=== PATIENT | female | born 1945 | race Caucasian/White ===

== ENCOUNTER 2022-02-28 22:30 | Emergency (ER) | payer SELFPAY ==
[~2022-02-28] VITALS: Ht 162.6 cm; Wt 57.0 kg
[2022-02-28 22:58] VITALS: BP 138/71
[2022-03-01] MEDS ORDERED: DICL50TA4 PO (02:45)
[2022-03-01] MEDS ORDERED: BACL10TA PO (02:45)
== END 2022-03-01 02:48 | disposition home or self-care (01) ==
LOC: ER 22:38
DX: S80.01XA Contusion of right knee, initial encounter (principal); S80.02XA Contusion of left knee, initial encounter; S60.212A Contusion of left wrist, initial encounter; S60.211A Contusion of right wrist, initial encounter; E78.5 Hyperlipidemia, unspecified; W01.0XXA Fall on same level from slipping, tripping and stumbling without subsequent striking against object, initial encounter; Y93.89 Activity, other specified; Y92.89 Other specified places as the place of occurrence of the external cause; Y99.8 Other external cause status
CPT/HCPCS: 73100; 73560

== ENCOUNTER 2022-06-15 13:17 | Inpatient (IN) | payer MEDICARE, OTHER ==
[~2022-06-15] VITALS: Ht 162.6 cm; Wt 64.0 kg
[~2022-06-15 13:17] MED LIST: BACL10TA PO; DICL50TA4 PO
[2022-06-15] MEDS ORDERED: SODIUM CHLORIDE 0.9% 1,000 ML IV ONE (13:30)
[2022-06-15 14:02] LABS: Red Cell Distribution Width 15.1 % (11.8-14.3); White Blood Cell 7.5 10^3/uL (4.4-10.8)
[2022-06-15 14:06] LABS: Hematocrit 41.5 % (36.0-46.0); Hemoglobin 14.4 g/dL (12.2-16.2); Mean Corpuscular Hemoglobin 32.2 pg (28.0-32.0); Mean Corpuscular Hgb Conc. 34.8 g/dL (32.0-36.0); Mean Corpuscular Volume 92.7 fL (80.0-100.0); Red Blood Cells 4.48 10^6/uL (4.0-5.20)
[2022-06-15] MEDS ORDERED: cefTRIAXone 1GM/50ML D5W 50 ML IV ONE (14:15)
[2022-06-15 14:17] LABS: INR 1.03 (0.9-1.15); Partial Thromboplastin Time 24.5 sec (24.6-33.4)
[2022-06-15 14:20] LABS: Albumin 3.1 g/dL (3.4-5.0); Calcium 8.8 mg/dL (8.5-10.1); Potassium 4.1 mmol/L (3.5-5.1)
[2022-06-15 14:23] LABS: BUN/Creatinine Ratio 17.2; Bilirubin, Total 0.6 mg/dL (0.2-1.0); Total Protein 6.2 g/dL (6.4-8.2)
[2022-06-15 15:08] LABS: Basophils % (manual) 0 (0.0-2.0); Blast Cells 0; Myelocytes % 0; Promyelocytes % 0; Reactive Lymphocytes 0
[2022-06-15 15:11] LABS: Band Neutrophils % (manual) 39; Eosinophils % (manual) 1 (0-7); Lymphocytes % (manual) 14 (10.0-50.0); Metamyelocytes % 2; Monocytes % (manual) 9 (0-12)
[2022-06-15 15:12] LABS: Lactic Acid w/Reflex 2.1 mmol/L (0.4-2.0)
[2022-06-15] MEDS ORDERED: DOCUSATE SOD 100 MG CAP PO PRN (20:30)
[2022-06-15] MEDS ORDERED: HYDROcodone-ACET 5/325MG TAB PO PRN (20:30)
[2022-06-15] MEDS ORDERED: LORazepam 0.5 MG TAB PO PRN (20:30)
[2022-06-15] MEDS ORDERED: MAALOX PLUS or MAALOX 30 ML PO PRN (20:30)
[2022-06-15] MEDS ORDERED: ONDANSETRON HCL 4 MG/2 ML VIAL IV PRN (20:30)
[2022-06-15] MEDS: cefTRIAXone 1GM/50ML D5W 50 ML IV SCH (20:50)
[2022-06-15] MEDS: SODIUM CHLORIDE 0.9% 1,000 ML IV SCH (21:13)
[2022-06-16 07:26] LABS: Basophils # (auto) 0 10 ^3/uL (0-0.2); Basophils % (auto) 0.5 % (0.0-2.0); Eosinophils # (auto) 0 10 ^3/uL (0-0.8); Eosinophils % (auto) 0.2 % (0.0-7.0); Hematocrit 38.3 % (36.0-46.0); Lymphocytes # (auto) 1.2 10 ^3/uL (0.4-5.4); Lymphocytes % (auto) 17.3 % (10.0-50.0); Mean Corpuscular Hemoglobin 31.1 pg (28.0-32.0); Mean Corpuscular Hgb Conc. 33.9 g/dL (32.0-36.0); Mean Corpuscular Volume 91.7 fL (80.0-100.0); Monocytes # (auto) 0.5 10 ^3/uL (0-1.3); Monocytes % (auto) 6.9 % (0.0-12.0); Neutrophils # (auto) 5.1 10 ^3/uL (1.6-8.6); Neutrophils % (auto) 75.1 % (37.0-80.0); Nucleated Red Blood Cells % 0.1 %; Red Blood Cells 4.18 10^6/uL (4.0-5.20); Red Cell Distribution Width 14.9 % (11.8-14.3); White Blood Cell 6.9 10^3/uL (4.4-10.8)
[2022-06-16 07:45] LABS: Calcium 8.4 mg/dL (8.5-10.1); Potassium 3.5 mmol/L (3.5-5.1)
[2022-06-16] MEDS ORDERED: BUSP15TA60 PO (09:48)
[2022-06-16] MEDS ORDERED: BUSP10TA31 PO (09:49)
[2022-06-16] MEDS ORDERED: FLUO-259 PO (09:53)
[2022-06-16] MEDS ORDERED: OLAN1TAB19 PO (09:53)
[2022-06-16] MEDS ORDERED: DIVA1TAB59 PO (09:53)
[2022-06-16] MEDS ORDERED: TRAZ50TA2 PO (09:53)
[2022-06-16 10:24] LABS: Urine Bacteria FEW /hpf (None Seen); Urine Blood 2+ /uL (Negative); Urine Mucus FEW (None Seen); Urine Specific Gravity 1.026 (1.001-1.035); Urine WBC 25 /hpf (0 - 5)
[2022-06-16] MEDS: SODIUM CHLORIDE 0.9% 1,000 ML IV SCH (13:35)
[2022-06-16 21:49] VITALS: BP 132/72
[2022-06-16] MEDS ORDERED: L-METAB PO (22:03)
[2022-06-16] MEDS ORDERED: PRAV20TA3 PO (22:03)
[2022-06-17] MEDS: SODIUM CHLORIDE 0.9% 1,000 ML IV SCH ×2 (05:33→22:30)
[2022-06-17 06:23] LABS: Basophils # (auto) 0 10 ^3/uL (0-0.2); Basophils % (auto) 0.8 % (0.0-2.0); Eosinophils # (auto) 0.1 10 ^3/uL (0-0.8); Eosinophils % (auto) 1.2 % (0.0-7.0); Hematocrit 36.9 % (36.0-46.0); Hemoglobin 12.8 g/dL (12.2-16.2); Lymphocytes % (auto) 19.2 % (10.0-50.0); Mean Corpuscular Hemoglobin 31.8 pg (28.0-32.0); Mean Corpuscular Hgb Conc. 34.6 g/dL (32.0-36.0); Monocytes # (auto) 0.3 10 ^3/uL (0-1.3); Monocytes % (auto) 6.7 % (0.0-12.0); Neutrophils # (auto) 3.6 10 ^3/uL (1.6-8.6); Neutrophils % (auto) 72.1 % (37.0-80.0); Nucleated Red Blood Cells % 0.4 %; Red Blood Cells 4.01 10^6/uL (4.0-5.20)
[2022-06-17 06:41] LABS: Potassium 3.6 mmol/L (3.5-5.1)
[2022-06-17 06:49] LABS: Albumin 2.5 g/dL (3.4-5.0); BUN/Creatinine Ratio 39.7; Bilirubin, Total 0.5 mg/dL (0.2-1.0); Calcium 8.9 mg/dL (8.5-10.1); Total Protein 5.3 g/dL (6.4-8.2)
[2022-06-17 09:04] VITALS: BP 114/64
[2022-06-17] MEDS: cefTRIAXone 1GM/50ML D5W 50 ML IV SCH (12:53)
[2022-06-17 13:00] VITALS: BP 109/65
[2022-06-17 17:00] VITALS: BP 106/57
[2022-06-17 20:15] VITALS: BP 125/87
[2022-06-17 22:00] VITALS: BP 125/87
[2022-06-18 05:00] VITALS: BP 123/52
[2022-06-18 08:32] LABS: Basophils # (auto) 0 10 ^3/uL (0-0.2); Basophils % (auto) 0.9 % (0.0-2.0); Eosinophils # (auto) 0 10 ^3/uL (0-0.8); Eosinophils % (auto) 0.4 % (0.0-7.0); Hematocrit 36.8 % (36.0-46.0); Hemoglobin 12.7 g/dL (12.2-16.2); Lymphocytes # (auto) 0.3 10 ^3/uL (0.4-5.4); Lymphocytes % (auto) 9.4 % (10.0-50.0); Mean Corpuscular Hemoglobin 31.8 pg (28.0-32.0); Mean Corpuscular Hgb Conc. 34.4 g/dL (32.0-36.0); Mean Corpuscular Volume 92.2 fL (80.0-100.0); Monocytes # (auto) 0.3 10 ^3/uL (0-1.3); Monocytes % (auto) 8.9 % (0.0-12.0); Neutrophils # (auto) 2.5 10 ^3/uL (1.6-8.6); Neutrophils % (auto) 80.4 % (37.0-80.0); Nucleated Red Blood Cells % 0.2 %; Red Blood Cells 3.99 10^6/uL (4.0-5.20); Red Cell Distribution Width 15.3 % (11.8-14.3); White Blood Cell 3.1 10^3/uL (4.4-10.8)
[2022-06-18 08:48] LABS: Calcium 8.3 mg/dL (8.5-10.1); Potassium 3.4 mmol/L (3.5-5.1)
[2022-06-18 08:51] LABS: Bilirubin, Total 0.6 mg/dL (0.2-1.0); Total Protein 6.3 g/dL (6.4-8.2)
[2022-06-18] MEDS: cefTRIAXone 1GM/50ML D5W 50 ML IV SCH (10:11)
[2022-06-18 14:15] LABS: BUN/Creatinine Ratio 25.3
[2022-06-18 20:00] VITALS: BP 124/62
[2022-06-18] MEDS: ACETAMINOPHEN 325 MG TAB PO PRN (20:52)
[2022-06-18 22:00] VITALS: BP 124/62
[2022-06-19 06:18] LABS: Potassium 3.9 mmol/L (3.5-5.1)
[2022-06-19 06:30] LABS: Albumin 2.7 g/dL (3.4-5.0); BUN/Creatinine Ratio 22.2; Bilirubin, Total 0.4 mg/dL (0.2-1.0); Calcium 8.4 mg/dL (8.5-10.1); Total Protein 5.7 g/dL (6.4-8.2)
[2022-06-19 06:33] LABS: Hematocrit 35.7 % (36.0-46.0); Hemoglobin 12.5 g/dL (12.2-16.2); Mean Corpuscular Hemoglobin 32.2 pg (28.0-32.0); Mean Corpuscular Hgb Conc. 34.9 g/dL (32.0-36.0); Mean Corpuscular Volume 92.1 fL (80.0-100.0); Red Blood Cells 3.88 10^6/uL (4.0-5.20)
[2022-06-19 06:44] LABS: Basophils % (manual) 0 (0.0-2.0); Eosinophils % (manual) 0 (0-7); Myelocytes % 0; Promyelocytes % 0; Reactive Lymphocytes 0
[2022-06-19 08:52] LABS: Band Neutrophils % (manual) 6; Blast Cells 2; Lymphocytes % (manual) 23 (10.0-50.0); Metamyelocytes % 2; Monocytes % (manual) 12 (0-12)
[2022-06-19 09:54] VITALS: BP 102/56
[2022-06-19] MEDS: cefTRIAXone 1GM/50ML D5W 50 ML IV SCH (11:00)
[2022-06-19] MEDS ORDERED: REMDESIVIR PER PHARMACY 0 ML IV SCH (16:15)
[2022-06-19] MEDS ORDERED: REMDESIVIR 200 MG in NS 210ml LOADING DOSE ADULT IV ONE (17:30)
[2022-06-19 18:01] VITALS: BP 137/82
[2022-06-19] MEDS: DexAMETHasone 4 MG TAB PO SCH (21:22)
[2022-06-19] MEDS: ACETAMINOPHEN 325 MG TAB PO PRN (21:24)
[2022-06-19 21:56] VITALS: BP 112/68
[2022-06-20 05:00] VITALS: BP 100/66
[2022-06-20 05:36] LABS: Albumin 2.3 g/dL (3.4-5.0); Anion Gap 7 (5-15); Blood Urea Nitrogen 13 mg/dL (7-18); Calcium 8.1 mg/dL (8.5-10.1); Carbon Dioxide 26 mmol/L (21-32); Chloride 105 mmol/L (98-107); Glucose 130 mg/dL (74-106); Potassium 3.7 mmol/L (3.5-5.1); Sodium 138 mmol/L (136-145)
[2022-06-20 05:38] LABS: Alanine Aminotransferase 20 U/L (13-56); BUN/Creatinine Ratio 18.6; GFR African American 105 mL/min; GFR Non-African American 87 mL/min
[2022-06-20 05:47] LABS: Alkaline Phosphatase 51 U/L (45-117); Aspartate Aminotransferase 37 U/L (15-37); Bilirubin, Total 0.3 mg/dL (0.2-1.0); Total Protein 5.9 g/dL (6.4-8.2)
[2022-06-20 06:44] LABS: Urine Bacteria NONE SEEN /hpf (None Seen); Urine Blood Negative /uL (Negative); Urine Specific Gravity 1.008 (1.001-1.035); Urine WBC 2 /hpf (0 - 5)
[2022-06-20 08:19] LABS: Basophils # (auto) 0 10 ^3/uL (0-0.2); Basophils % (auto) 0.6 % (0.0-2.0); Eosinophils # (auto) 0 10 ^3/uL (0-0.8); Hematocrit 39.2 % (36.0-46.0); Hemoglobin 13.2 g/dL (12.2-16.2); Lymphocytes # (auto) 0.6 10 ^3/uL (0.4-5.4); Lymphocytes % (auto) 14.9 % (10.0-50.0); Mean Corpuscular Hgb Conc. 33.7 g/dL (32.0-36.0); Monocytes # (auto) 0.4 10 ^3/uL (0-1.3); Monocytes % (auto) 11.5 % (0.0-12.0); Neutrophils # (auto) 2.8 10 ^3/uL (1.6-8.6); Red Blood Cells 4.26 10^6/uL (4.0-5.20); Red Cell Distribution Width 14.9 % (11.8-14.3); White Blood Cell 3.8 10^3/uL (4.4-10.8)
[2022-06-20 08:44] VITALS: BP 92/68
[2022-06-20] MEDS: DexAMETHasone 4 MG TAB PO SCH (10:07)
[2022-06-20 13:00] VITALS: BP 99/52
[2022-06-20] MEDS: REMDESIVIR 100mg 100 MG in SODIUM CHL 0.9% 230 ML IV SCH (16:15)
[2022-06-20 17:00] VITALS: BP 98/48
[2022-06-20 22:00] VITALS: BP 111/60
[2022-06-21] VITALS (7 sets, daily range): BP systolic 76–112; BP diastolic 46–60
[2022-06-21 07:24] LABS: Basophils # (auto) 0 10 ^3/uL (0-0.2); Basophils % (auto) 0.3 % (0.0-2.0); Eosinophils # (auto) 0 10 ^3/uL (0-0.8); Hematocrit 42.1 % (36.0-46.0); Hemoglobin 14.6 g/dL (12.2-16.2); Lymphocytes # (auto) 1.8 10 ^3/uL (0.4-5.4); Lymphocytes % (auto) 26.4 % (10.0-50.0); Mean Corpuscular Hemoglobin 31.8 pg (28.0-32.0); Mean Corpuscular Hgb Conc. 34.8 g/dL (32.0-36.0); Mean Corpuscular Volume 91.4 fL (80.0-100.0); Monocytes # (auto) 0.5 10 ^3/uL (0-1.3); Monocytes % (auto) 7.9 % (0.0-12.0); Neutrophils # (auto) 4.5 10 ^3/uL (1.6-8.6); Neutrophils % (auto) 65.4 % (37.0-80.0); Nucleated Red Blood Cells % 0.4 %; Red Blood Cells 4.61 10^6/uL (4.0-5.20); Red Cell Distribution Width 15.1 % (11.8-14.3)
[2022-06-21 07:44] LABS: Potassium 3.6 mmol/L (3.5-5.1)
[2022-06-21 07:53] LABS: Albumin 2.8 g/dL (3.4-5.0); Bilirubin, Total 0.4 mg/dL (0.2-1.0); Calcium 8.6 mg/dL (8.5-10.1); Total Protein 5.7 g/dL (6.4-8.2)
[2022-06-21] MEDS: DexAMETHasone 4 MG TAB PO SCH (09:29)
[2022-06-21] MEDS ORDERED: SODIUM CHLORIDE 0.9% 1,000 ML IV ONE (13:00)
[2022-06-21] MEDS: REMDESIVIR 100mg 100 MG in SODIUM CHL 0.9% 230 ML IV SCH (14:58)
[2022-06-22 05:00] VITALS: BP 101/55
[2022-06-22 07:24] LABS: Basophils # (auto) 0 10 ^3/uL (0-0.2); Basophils % (auto) 0.2 % (0.0-2.0); Eosinophils # (auto) 0 10 ^3/uL (0-0.8); Eosinophils % (auto) 0.1 % (0.0-7.0); Hematocrit 38.9 % (36.0-46.0); Lymphocytes # (auto) 1.5 10 ^3/uL (0.4-5.4); Lymphocytes % (auto) 24.7 % (10.0-50.0); Mean Corpuscular Hemoglobin 30.6 pg (28.0-32.0); Mean Corpuscular Hgb Conc. 33.4 g/dL (32.0-36.0); Mean Corpuscular Volume 91.6 fL (80.0-100.0); Monocytes # (auto) 0.4 10 ^3/uL (0-1.3); Monocytes % (auto) 6.7 % (0.0-12.0); Neutrophils % (auto) 68.3 % (37.0-80.0); Nucleated Red Blood Cells % 0.3 %; Red Blood Cells 4.25 10^6/uL (4.0-5.20); White Blood Cell 5.9 10^3/uL (4.4-10.8)
[2022-06-22 08:14] LABS: Albumin 2.5 g/dL (3.4-5.0); BUN/Creatinine Ratio 48.1; Calcium 8.1 mg/dL (8.5-10.1); Potassium 3.5 mmol/L (3.5-5.1)
[2022-06-22 08:18] LABS: Bilirubin, Total 0.4 mg/dL (0.2-1.0); Total Protein 5.1 g/dL (6.4-8.2)
[2022-06-22 08:53] VITALS: BP 112/53
[2022-06-22] MEDS: DexAMETHasone 4 MG TAB PO SCH (09:55)
[2022-06-22 12:31] VITALS: BP 98/50
[2022-06-22] MEDS: REMDESIVIR 100mg 100 MG in SODIUM CHL 0.9% 230 ML IV SCH (15:49)
[2022-06-22 16:38] VITALS: BP 99/58
[2022-06-22 21:56] VITALS: BP 106/56
[2022-06-23 05:00] VITALS: BP 122/70
[2022-06-23 07:21] LABS: Basophils # (auto) 0 10 ^3/uL (0-0.2); Basophils % (auto) 0.3 % (0.0-2.0); Eosinophils # (auto) 0 10 ^3/uL (0-0.8); Eosinophils % (auto) 0.1 % (0.0-7.0); Hematocrit 36.6 % (36.0-46.0); Hemoglobin 12.6 g/dL (12.2-16.2); Lymphocytes # (auto) 1.3 10 ^3/uL (0.4-5.4); Lymphocytes % (auto) 29.9 % (10.0-50.0); Mean Corpuscular Hemoglobin 31.6 pg (28.0-32.0); Mean Corpuscular Hgb Conc. 34.5 g/dL (32.0-36.0); Mean Corpuscular Volume 91.5 fL (80.0-100.0); Monocytes # (auto) 0.4 10 ^3/uL (0-1.3); Monocytes % (auto) 8.1 % (0.0-12.0); Neutrophils # (auto) 2.7 10 ^3/uL (1.6-8.6); Neutrophils % (auto) 61.6 % (37.0-80.0); Nucleated Red Blood Cells % 0.3 %; White Blood Cell 4.4 10^3/uL (4.4-10.8)
[2022-06-23 07:40] LABS: Potassium 3.6 mmol/L (3.5-5.1)
[2022-06-23 07:50] LABS: Albumin 2.6 g/dL (3.4-5.0); BUN/Creatinine Ratio 53.1; Bilirubin, Total 0.5 mg/dL (0.2-1.0); Total Protein 5.1 g/dL (6.4-8.2)
[2022-06-23 08:32] VITALS: BP 105/53
[2022-06-23] MEDS: DexAMETHasone 4 MG TAB PO SCH (11:06)
[2022-06-23 13:00] VITALS: BP 109/65
[2022-06-23] MEDS: REMDESIVIR 100mg 100 MG in SODIUM CHL 0.9% 230 ML IV SCH (15:17)
[2022-06-23 17:00] VITALS: BP 112/54
[2022-06-24 08:15] VITALS: BP 113/63
[2022-06-24] MEDS: DexAMETHasone 4 MG TAB PO SCH (11:51)
[2022-06-24 12:00] VITALS: BP 103/59
[2022-06-24] MEDS: REMDESIVIR 100mg 100 MG in SODIUM CHL 0.9% 230 ML IV SCH (16:44)
[2022-06-24 18:20] VITALS: BP 104/57
[2022-06-24 20:00] VITALS: BP 110/57
[2022-06-25 06:31] LABS: Basophils # (auto) 0 10 ^3/uL (0-0.2); Basophils % (auto) 0.3 % (0.0-2.0); Eosinophils # (auto) 0 10 ^3/uL (0-0.8); Eosinophils % (auto) 0.1 % (0.0-7.0); Hematocrit 35.2 % (36.0-46.0); Hemoglobin 12.1 g/dL (12.2-16.2); Lymphocytes % (auto) 19.9 % (10.0-50.0); Mean Corpuscular Hemoglobin 31.4 pg (28.0-32.0); Mean Corpuscular Hgb Conc. 34.4 g/dL (32.0-36.0); Mean Corpuscular Volume 91.3 fL (80.0-100.0); Monocytes # (auto) 0.3 10 ^3/uL (0-1.3); Neutrophils # (auto) 3.8 10 ^3/uL (1.6-8.6); Neutrophils % (auto) 74.7 % (37.0-80.0); Nucleated Red Blood Cells % 0.1 %; Red Blood Cells 3.85 10^6/uL (4.0-5.20); Red Cell Distribution Width 15.1 % (11.8-14.3); White Blood Cell 5.1 10^3/uL (4.4-10.8)
[2022-06-25 06:48] LABS: Albumin 2.3 g/dL (3.4-5.0); BUN/Creatinine Ratio 37.5; Calcium 8.4 mg/dL (8.5-10.1); Potassium 4.1 mmol/L (3.5-5.1)
[2022-06-25 06:51] LABS: Bilirubin, Total 0.4 mg/dL (0.2-1.0); Total Protein 4.8 g/dL (6.4-8.2)
[2022-06-25 09:00] VITALS: BP 127/94
[2022-06-25] MEDS: DexAMETHasone 4 MG TAB PO SCH (10:47)
[2022-06-25 13:00] VITALS: BP 99/50
[2022-06-25 17:00] VITALS: BP 106/49
[2022-06-25 20:00] VITALS: BP 110/57
[2022-06-26 07:13] LABS: Basophils # (auto) 0 10 ^3/uL (0-0.2); Basophils % (auto) 0.5 % (0.0-2.0); Eosinophils # (auto) 0 10 ^3/uL (0-0.8); Eosinophils % (auto) 0.2 % (0.0-7.0); Hematocrit 35.2 % (36.0-46.0); Hemoglobin 12.2 g/dL (12.2-16.2); Lymphocytes # (auto) 1.3 10 ^3/uL (0.4-5.4); Lymphocytes % (auto) 23.3 % (10.0-50.0); Mean Corpuscular Hemoglobin 31.6 pg (28.0-32.0); Mean Corpuscular Hgb Conc. 34.8 g/dL (32.0-36.0); Mean Corpuscular Volume 90.7 fL (80.0-100.0); Monocytes # (auto) 0.3 10 ^3/uL (0-1.3); Monocytes % (auto) 5.1 % (0.0-12.0); Neutrophils % (auto) 70.9 % (37.0-80.0); Nucleated Red Blood Cells % 0.1 %; Red Blood Cells 3.88 10^6/uL (4.0-5.20); Red Cell Distribution Width 15.4 % (11.8-14.3); White Blood Cell 5.7 10^3/uL (4.4-10.8)
[2022-06-26 07:29] LABS: Albumin 2.4 g/dL (3.4-5.0); Calcium 8.1 mg/dL (8.5-10.1); Potassium 3.8 mmol/L (3.5-5.1)
[2022-06-26 07:33] LABS: BUN/Creatinine Ratio 43.3; Bilirubin, Total 0.6 mg/dL (0.2-1.0); Total Protein 4.9 g/dL (6.4-8.2)
[2022-06-26 09:00] VITALS: BP 102/53
[2022-06-26] MEDS: DexAMETHasone 4 MG TAB PO SCH (11:53)
[2022-06-26 13:00] VITALS: BP 112/66
[2022-06-26 17:00] VITALS: BP 97/58
[2022-06-26 20:00] VITALS: BP 97/49
[2022-06-26 22:00] VITALS: BP 97/49
[2022-06-27 05:00] VITALS: BP 120/66
[2022-06-27 06:50] LABS: Albumin 2.5 g/dL (3.4-5.0); Calcium 7.9 mg/dL (8.5-10.1)
[2022-06-27 06:54] LABS: BUN/Creatinine Ratio 33.8; Bilirubin, Total 0.6 mg/dL (0.2-1.0); Total Protein 5.1 g/dL (6.4-8.2)
[2022-06-27 06:57] LABS: Basophils # (auto) 0 10 ^3/uL (0-0.2); Basophils % (auto) 0.6 % (0.0-2.0); Eosinophils # (auto) 0.2 10 ^3/uL (0-0.8); Eosinophils % (auto) 3.4 % (0.0-7.0); Hematocrit 36.1 % (36.0-46.0); Hemoglobin 12.7 g/dL (12.2-16.2); Lymphocytes # (auto) 1.5 10 ^3/uL (0.4-5.4); Lymphocytes % (auto) 34.8 % (10.0-50.0); Mean Corpuscular Hemoglobin 32.1 pg (28.0-32.0); Mean Corpuscular Hgb Conc. 35.2 g/dL (32.0-36.0); Mean Corpuscular Volume 91.4 fL (80.0-100.0); Monocytes # (auto) 0.2 10 ^3/uL (0-1.3); Monocytes % (auto) 5.6 % (0.0-12.0); Neutrophils # (auto) 2.5 10 ^3/uL (1.6-8.6); Neutrophils % (auto) 55.6 % (37.0-80.0); Nucleated Red Blood Cells % 0.5 %; Red Blood Cells 3.95 10^6/uL (4.0-5.20); White Blood Cell 4.5 10^3/uL (4.4-10.8)
[2022-06-27 07:43] VITALS: BP 97/49
[2022-06-27] MEDS: DexAMETHasone 4 MG TAB PO SCH (08:18)
[2022-06-27 09:00] VITALS: BP 102/52
[2022-06-27 14:22] VITALS: BP 101/50
== END 2022-06-27 17:51 | disposition home health service (06) | DRG 177 ==
LOC: ER 13:17 → EDBD 13:17 → OVERFLOW 20:22 → WEST WING 06-16 21:00
PROVIDERS: ADMIT Hospitalist; ATTEND Student in an Organized Health Care Education/Training Program
PROC: XW033E5 Introduction of Remdesivir Anti-infective into Peripheral Vein, Percutaneous Approach, New Technology Group 5 (ICD-10-PCS; principal; 2022-06-19)
DX: U07.1 COVID-19 (principal); E43 Unspecified severe protein-calorie malnutrition; G93.41 Metabolic encephalopathy; J96.01 Acute respiratory failure with hypoxia; J12.82 Pneumonia due to coronavirus disease 2019; N39.0 Urinary tract infection, site not specified; E87.20 Acidosis, unspecified; F03.90 Unspecified dementia, unspecified severity, without behavioral disturbance, psychotic disturbance, mood disturbance, and anxiety; E78.5 Hyperlipidemia, unspecified; R79.89 Other specified abnormal findings of blood chemistry; D69.6 Thrombocytopenia, unspecified; D72.819 Decreased white blood cell count, unspecified; Z23 Encounter for immunization; Z87.01 Personal history of pneumonia (recurrent); Z88.1 Allergy status to other antibiotic agents
CPT/HCPCS: 36415; 36600; 70450; 71045; 71046; 80048; 80053; 81001; 82805; 83605; 83880; 84484; 85007; 85025; 85027; 85610; 85730; 87040; 87086; 87426; 87804; 96365; 97110; 97116; 97163; 97530; G0378; J0696; J7042

== ENCOUNTER 2024-05-17 07:12 | Emergency (ER) | payer MEDICARE, OTHER ==
[~2024-05-17] VITALS: Ht 162.6 cm; Wt 45.5 kg
[~2024-05-17 07:12] MED LIST changes: -BACL10TA PO; +BUSP10TA31 PO; +DIVA1TAB59 PO; +FLUO-259 PO; +L-METAB PO; +OLAN1TAB19 PO; +PRAV20TA3 PO; +TRAZ-227 PO
--- NOTE | 2024-05-17 07:25 | ED.PDOC ---
GI ASSESSMENT HPI Comments 78Y F with PMHx HLD and dementia presents to ED via EMS for chief complaint nausea/vomiting x4hrs. Pt presents to ED very shaky and states she is scared of what is happening to her and says she does not usually shake. Pt denies all pain. Per pt, she had a fall recently but EMS says that the denies any recent falls. EMS vitals: systolic BP 110s, HR 86, O2 86% on RA and then low 90s with 2L/min of O2 via nc, and BS 135. EKG showed NSR with EMS. Time Seen by MD: 07:15 Primary Care Provider: unknown Reviewed Notes: Medications, Allergies Allergies: Coded Allergies: Erythromycin (Verified Allergy, Intermediate, 06/15/22) Penicillin V (Verified Allergy, Unknown, 06/15/22) Uncoded Allergies: PENICLLIN (Allergy, Intermediate, 06/15/22) Home Meds Active Scripts Diclofenac Sodium (Diclofenac Sodium Ec) 50 Mg Tab, 1 TAB PO BID PRN, #20 TAB 1 Refill Prov:SUPRIYA JESUS 03/01/22 Reported Medications Pravastatin Sodium (PRAVACHOL TABLET) 20 Mg Tb, 1 TAB PO DAILY, #30 TAB 5 Refills 06/16/22 L-Methylfolate W/ Cyanocobalam (Cerefolin) Tab, 314 MG PO DAILY, TAB 06/16/22 Trazodone Hcl (Trazodone Hcl) 50 Mg Tab, 1 TAB PO HS 06/16/22 Fluoxetine HCl (Fluoxetine Hydrochloride) 20 Mg Cap, 1 CAP PO DAILY 06/16/22 Olanzapine (OLANZAPINE) 10 Mg Tab, 1 TAB PO DAILY 06/16/22 Divalproex Sodium (Divalproex Sodium Dr) 500 Mg Tab, 1 TAB PO BID 06/16/22 Buspirone HCl (Buspirone HCl) 10 Mg Tab, 1 TAB PO DAILY 06/16/22 Information Source: Patient, Emergency Med Personnel Mode of Arrival: EMS Brought in by: EMS Timing: Hours Duration: Since onset Prehospital treatment: 12 Lead EKG, Oxygen Quality: None Vomitus: Watery Stool: Normal Severity: Mild Recent: None Recent Hx of: None Pain Location: None Modifying Factors: Nothing Associated sign and symptoms: Nausea, Vomiting Past Medical History PAST MEDICAL HISTORY: Dementia, High Lipids Surgical History: Denies all surgeries 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 Family History Family History: Unknown Social History Smoker: Non-Smoker Alcohol: Denies ETOH Use Drugs: Denies Drug Use Lives In: Home Constitutional: denies: chills, diaphoresis, fatigue, fever, malaise, sweats, weakness, others EENTM: denies: blurred vision, double vision, ear bleeding, ear discharge, ear drainage, ear pain, ear ringing, eye pain, eye redness, hearing loss, mouth pain, mouth swelling, nasal discharge, nose bleeding, nose congestion, nose pain, photophobia, tearing, throat pain, throat swelling, voice changes, others Respiratory: denies: cough, hemoptysis, orthopnea, SOB at rest, shortness of breath, SOB with excertion, stridor, wheezing, others Cardiovascular: denies: chest pain, dizzy spells, diaphoresis, Dyspnea on exertion, edema, irregular heart beat, left arm pain, lightheadedness, palpitations, PND, syncope, others Gastrointestinal: reports: nausea, vomiting; denies: abdomen distended, abdominal pain, blood streaked bowels, constipated, diarrhea, dysphagia, di fficulty swallowing, hematemesis, melena, poor appetite, poor fluid intake, rectal bleeding, rectal pain, others Genitourinary: denies: abnormal vagina bleeding, burning, dyspareunia, dysuria, flank pain, frequency, hematuria, incontinence, pain, , vagina discharge, urgency, others Neurological: denies: dizziness, fainting, headache, left sided numbness, left sided weakness, numbness, paresthesia, pre-existing deficit, right sided numbness, right sided weakness, seizure, speech problems, tingling, tremors, weakness, others Musculoskeletal: denies: back pain, gout, joint pain, joint swelling, muscle pain, muscle stiffness, neck pain, others Integumetry: denies: bruises, change in color, change in hair/nails, dryness, laceration, lesions, lumps, rash, wounds, others Allergic/Immunocompromised: denies: Difficulty Healing, Frequent Infections, Hives, Itching, others Hematologic/Lymphatic: denies: anemia, blood clots, easy bleeding, easy bruising, swollen glands, others Endocrine: denies: excessive hunger, excessive sweating, excessive thirst, excessive urination, flushing, intolerance to cold, intolerance to heat, unexplained weight gain, unexplained weight loss, others Psychiatric: denies: anxiety, bipolar disorder, depression, hopeless, panic disorder, schizophrenia, sleepless, suicidal, others All Other Systems: Reviewed and Negative Physical Exam General Appearance: No Apparent Distress, Normal HEENT: Normal ENT Inspection, Pharynx Normal, TMs Normal Neck: Full Range of Motion, Non-Tender, Normal, Normal Inspection Respiratory: Chest Non-Tender, Lungs Clear, Normal Breath Sounds, Other ( tachypneic) Cardiovascular: No Edema, No JVD, No Murmur, No Gallop, Normal Peripheral Pulses, Tachycardia Breast Exam: Deferred Gastrointestinal: No Organomegaly, Non Tender, No Pulsatile Mass, Normal Bowel Sounds, Soft Genitalia: Deferred Pelvic: Deferred Rectal: Deferred Extremities: No calf tenderness, Normal capillary refill, Normal inspection, Normal range of motion, Non-tender, No pedal edema Musculoskeletal : Apperance: Normal Neurologic: Alert, medical records specialist II-XII nml as Tested, No Motor Deficits, Normal Affect, Normal Mood, No Sensory Deficits Cerebellar Function: NOT DONE Reflexes: NOT DONE Skin: Dry, Normal Color, Warm Lymphatic: No Adenopathy Was a procedure done? Was a procedure done?: No GI differential Dx Differential Diagnosis: Gastritis/PUD, Gastroenteritis, Electrolyte Imbalance, Food Poisoning, Malnutrition X-Ray, Labs, Meds, VS Vital Signs Date Time Temp Pulse Resp B/P (MAP) Pulse Ox O2 Delivery O2 Flow Rate FiO2 05/17/24 12:26 113 05/17/24 12:00 98.5 108 16 133/70 (91) 92 98.5 05/17/24 08:22 98.5 79 16 120/51 (74) 92 98.5 05/17/24 07:15 99.3 85 18 109/57 (74) 93 Lab Test 05/17/24 13:33 05/17/24 12:34 05/17/24 09:56 05/17/24 08:44 Range/Units Urine Color Pending Urine Clarity Pending Urine pH Pending Urine Specific [place] Pending Urine Protein Pending Urine Ketones Pending Urine Blood Pending Urine Nitrite Pending Urine Bilirubin Pending Urine Urobilinogen Pending Urine Leukocyte Esterase Pending Urine RBC Pending Urine WBC Pending Urine Squamous Epithelial Cells Pending Urine Bacteria Pending Urine Glucose Pending POC Glucose 137 H 70-106 mg/dl Lactic Acid Level 1.9 0.4-2.0 mmol/L White Blood Count 3.2 L 4.4-10.8 10^3/uL Red Blood Count 5.08 4.0-5.20 10^6/uL Hemoglobin 15.5 12.2-16.2 g/dL Hematocrit 46.8 H 36.0-46.0 % Mean Corpuscular Volume 92.1 80.0-100.0 fL Mean Corpuscular Hemoglobin 30.5 28.0-32.0 pg Mean Corpuscular Hemoglobin Concent 33.1 32.0-36.0 g/dL Red Cell Distribution Width 15.9 H 11.8-14.3 % Platelet Count 88 L 140-450 10^3/uL Mean Platelet Volume 7.7 6.9-10.8 fL Neutrophils (%) (Auto) 37.0-80.0 % Lymphocytes (%) (Auto) 10.0-50.0 % Monocytes (%) (Auto) 0.0-12.0 % Basophils (%) (Auto) 0.0-2.0 % Neutrophils # (Auto) 1.6-8.6 10 ^3/uL Lymphocytes # (Auto) 0.4-5.4 10 ^3/uL Monocytes # (Auto) 0-1.3 10 ^3/uL Differential Total Cells Counted 100.0 100 Neutrophils % (Manual) 61 37.0-80.0 Band Neutrophils % (Manual) 21 Lymphocytes % (Manual) 9 L 10.0-50.0 Monocytes % (Manual) 7 0-12 Eosinophils % (Manual) 0 0-7 Basophils % (Manual) 0 0.0-2.0 Metamyelocytes % (manual) 0 Myelocytes % (Manual) 0 Promyelocytes % (Manual) 0 Blast Cells % (Manual) 0 Reactive Lymphocytes 2 Platelet Estimate Decreased Troponin I High Sensitivity < 3 L </=34 ng/L Test 05/17/24 07:46 Range/Units Sodium Level 139 136-145 mmol/L Potassium Level 5.4 H 3.5-5.1 mmol/L Chloride Level 108 H 98-107 mmol/L Carbon Dioxide Level 18 L 20-31 mmol/L Anion Gap 13 5-15 Blood Urea Nitrogen 22 9-23 mg/dL Creatinine 1.20 H 0.550-1.02 mg/dL Glomerular Filtration Rate Calc 47 >90 mL/min BUN/Creatinine Ratio 18.3 10.0-20.0 Serum Glucose 140 H 74-106 mg/dL Lactic Acid Level 2.3 *H 0.4-2.0 mmol/L Calcium Level 10.1 8.7-10.4 mg/dL Total Bilirubin 0.5 0.2-1.0 mg/dL Aspartate Amino Transferase (AST) 19 13-40 U/L Alanine Aminotransferase (ALT) 10 7-40 U/L Alkaline Phosphatase 64 46-116 U/L Troponin I High Sensitivity < 3 L </=34 ng/L Total Protein 6.6 5.7-8.2 g/dL Albumin 4.1 3.2-4.8 g/dL Current Medications Medications (Trade) Dose Ordered Sig/Inna Route Start Time Stop Time Status Last Admin Sodium Chloride 1,000 ml @ 1,000 mls/hr Q1H ONCE IV 05/17/24 07:30 05/17/24 08:29 DC 05/17/24 08:18 Ondansetron HCl (Zofran) 4 mg ONCE ONCE IV 05/17/24 07:30 05/17/24 07:31 DC 05/17/24 08:18 Famotidine (Pepcid Injection) 20 mg ONCE ONCE IV 05/17/24 07:30 05/17/24 07:31 DC 05/17/24 08:18 Calcium Gluconate/ Sodium Chloride 50 ml @ 100 mls/hr Q30M IV 05/17/24 10:30 05/17/24 11:29 DC 05/17/24 11:00 Sodium Bicarbonate 100 ml ONCE ONCE IV 05/17/24 10:30 05/17/24 10:36 DC 05/17/24 12:32 Insulin Human Regular (InsuLIN R) 10 units ONCE ONCE IV 05/17/24 10:30 05/17/24 10:36 DC 05/17/24 12:36 Dextrose 50 ml ONCE ONCE IV 05/17/24 10:30 05/17/24 10:36 DC 05/17/24 12:[address] [address] Ph: [phone] DIAGNOSTIC IMAGING Diagnostic Imaging Report : [id number] Signed PATIENT: JO RIVERA ACCT: [id number] UNIT: [id number] : 1945 LOC: ER ROOM / BED: / AGE / SEX: 78 / F ADM STATUS: REG ER SERVICE 6 ORDERING PHYSICIAN: SOPHIA CALDERON MD PROCEDURE(s): CXRP - CHEST PORTABLE REASON: nausea and vomiting ORDER NUMBER(s): [id number], ACCESSION NUMBER(s): [id number] CHEST PORTABLE, HISTORY: nausea and vomiting COMPARISON: CHEST PORTABLE on DOS: 06/15/22, CXRP on DOS: 06/15/22 CHEST PORTABLE on DOS: 06/15/22, CXRP on DOS: 06/15/22 TECHNICAL DATA: 1 view of the chest was obtained. FINDINGS: Lines and tubes: None Cardiomediastinal silhouette: normal Pulmonary vasculature: normal Lung expansion: normal Lung airspace: Lung surgical kristie are seen in the right middle lung zone. Pathcy left basilar airspace opacity, nonspecific. Lung interstitium: normal Pleura: normal Pneumothorax: no Bones: Unremarkable Other: no IMPRESSION: Lung surgical kristie are seen in the right middle lung zone. Pathcy left basilar airspace opacity, nonspecific. ATED BY: BALWINDER MITCHELL MD DICTATED DATE/TIME: 05/17/24905 SIGNED BY: BALWINDER MITCHELL MD SIGNED DATE/TIME: 05/17/24905 CC: Time of 1ST Reevaluation: 07:45 Reevaluation 1ST: Unchanged Patient Education/Counseling: Diagnosis, Treatment Family Education/Counseling: No Family Present Additional Information I reviewed the following notes from the pt's past medical encounters: [facility] discharge 06/27/2022 dx UTI, [facility] ER 02/28/2022 dx knee contusion The following tests were ordered, and results were reviewed by me: CBC, CMP, Troponin x3, Lactic Acid, UA, CXR Additional information was gathered from interviewing the following independent historians: EMS I reviewed and agreed with the following test results read by other providers: CXR I discussed treatments and results with medical personnel. Departure 1 Departure Time of Disposition: 13:48 ([facility] Authorization [id number] with hyperkalemia and nausea and intractable vomiting. Patient is stable for transport we will transfer patient to [facility].) Impression: Primary Impression: Hyperkalemia Additional Impressions: Weakness Projectile vomiting Qualified Codes: R11.12 - Projectile vomiting Disposition: 02 SHORT TERM HOSPITAL Admit to: Med Surg Condition: Serious Critical Care Note Critical Care Time?: No Stability Stability form required: No Heart Score Heart Score: Heart Score Response (Comments) Value History N/A 0 EKG N/A 0 Age N/A 0 Risk Factors N/A 0 Troponin N/A 0 Total 0 I personally scribed for SOPHIA CALDERON MD ([employer]) on 05/17/24 at 07:25. Electronically submitted by Janeth Urrutia ([employer]). I personally scribed for SOPHIA CALDERON MD ([email or web address]) on 05/17/24 at 09:23. Electronically submitted by Janeth Urrutia ([employer]). SOPHIA CALDERON MD May 17, 2024 07:25
[2024-05-17] MEDS: FAMOTIDINE (10MG/ML) 2ML VL IV ONE (08:18)
[2024-05-17] MEDS: ONDANSETRON HCL 4 MG/2 ML VIAL IV ONE (08:18)
[2024-05-17] MEDS: SODIUM CHLORIDE 0.9% 1,000 ML IV ONE (08:18)
[2024-05-17 08:38] LABS: Lactic Acid w/Reflex 2.3 mmol/L (0.4-2.0)
[2024-05-17 08:46] LABS: Alanine Aminotransferase 10 U/L (7-40); Albumin 4.1 g/dL (3.2-4.8); Alkaline Phosphatase 64 U/L (46-116); Anion Gap 13 (5-15); Aspartate Aminotransferase 19 U/L (13-40); BUN/Creatinine Ratio 18.3 (10.0-20.0); Bilirubin, Total 0.5 mg/dL (0.2-1.0); Blood Urea Nitrogen 22 mg/dL (9-23); Calcium 10.1 mg/dL (8.7-10.4); Sodium 139 mmol/L (136-145)
[2024-05-17 08:47] LABS: Total Protein 6.6 g/dL (5.7-8.2)
[2024-05-17 09:02] LABS: Carbon Dioxide 18 mmol/L (20-31); Chloride 108 mmol/L (98-107); Glucose 140 mg/dL (74-106); Potassium 5.4 mmol/L (3.5-5.1)
--- NOTE | 2024-05-17 09:08 | DVH ---
XY CHEST PORTABLE, HISTORY: nausea and vomiting COMPARISON: CHEST PORTABLE on DOS: 06/15/22, CXRP on DOS: 06/15/22 CHEST PORTABLE on DOS: 06/15/22, CXRP on DOS: 06/15/22 TECHNICAL DATA: 1 view of the chest was obtained. FINDINGS: Lines and tubes: None Cardiomediastinal silhouette: normal Pulmonary vasculature: normal Lung expansion: normal Lung airspace: Lung surgical kristie are seen in the right middle lung zone. Pathcy left basilar airs pace opacity, nonspecific. Lung interstitium: normal Pleura: normal Pneumothorax: no Bones: Unremarkable Other: no IMPRESSION: Lung surgical kristie are seen in the right middle lung zone. Pathcy left basilar airspace opacity, n onspecific.
[2024-05-17 09:26] LABS: Hematocrit 46.8 % (36.0-46.0); Hemoglobin 15.5 g/dL (12.2-16.2); Mean Corpuscular Hemoglobin 30.5 pg (28.0-32.0); Mean Corpuscular Hgb Conc. 33.1 g/dL (32.0-36.0); Mean Corpuscular Volume 92.1 fL (80.0-100.0); Platelet Count (auto) 88 10^3/uL (140-450); Red Blood Cells 5.08 10^6/uL (4.0-5.20); Red Cell Distribution Width 15.9 % (11.8-14.3); White Blood Cell 3.2 10^3/uL (4.4-10.8)
[2024-05-17 09:40] LABS: Basophils % (manual) 0 (0.0-2.0); Blast Cells 0; Eosinophils % (manual) 0 (0-7); Metamyelocytes % 0; Myelocytes % 0; Promyelocytes % 0
[2024-05-17 10:28] LABS: Band Neutrophils % (manual) 21; Lymphocytes % (manual) 9 (10.0-50.0); Monocytes % (manual) 7 (0-12); Reactive Lymphocytes 2
[2024-05-17 10:30] LABS: Platelet Estimate Decreased
[2024-05-17] MEDS: CALCIUM GLUC 1,000mg/50ml-NS 50 ML IV SCH (10:30)
[2024-05-17] MEDS: IOHEXOL 300 MG/ML 100ML BOTTLE IJ ONE (11:12)
[2024-05-17 11:30] VITALS: PULSE 107; RESP 16; O2SAT 96
[2024-05-17] MEDS: SODIUM BICARB 8.4% 50Meq/50ml SYR Vial IV ONE (12:32)
[2024-05-17] MEDS: InsuLIN REG 1unit/0.01ml Soln (100units/ml) IV ONE (12:36)
[2024-05-17] MEDS: DEXTROSE (50%) 50ML SYRG IV ONE (12:36)
--- NOTE | 2024-05-17 12:58 | DVH ---
CT CT AB PEL WITH IV CON ONLY INDICATION: abdominal pain, nausea, vomiting EXAM DATE: 05/17/2024 12:05 PM COMPARISON: None RADIATION DOSE: CTDIvol: 14.73 mGy, DLP: 779.05 mGy*cm PROCEDURE: Helical CT images were obtained of the abdomen and pelvis without IV contrast Sagittal an d coronal reconstructions are provided. ORAL CONTRAST: None. ADDITIONAL IMAGES / REFORMATS: None All CT scans at this medical facility are performed using dose modulation techniques as appropriate t o a performed exam including the following: Automated exposure control was utilized; adjustment of th e MA and/or KV according to patient size; and use of iterative reconstruction technique. FINDINGS: LUNG BASE: Bibasilar patchy ground glass opacity with mild interstitial lung disease. LIVER: Normal. GALLBLADDER AND BILIARY TREE: No calcified gallstones. Normal caliber wall. No intra- or extrahepatic biliary ductal dilation. PANCREAS: Normal. SPLEEN: Normal. BOWEL: Mild colonic diverticulosis. Appendix not seen. ADRENALS: Normal. KIDNEYS AND URETER: Normal. BLADDER: Normal. REPRODUCTIVE ORGANS: Atrophic. LYMPH NODES:No lymphadenopathy. PERITONEUM: No ascites or free air. No other fluid collection. VESSELS: Scattered atherosclerotic calcifications are noted. RETROPERITONEUM: Normal. ABDOMINAL WALL: Normal. BONES: Scattered osseous degenerative changes are noted. Lumbar spinal and left SI joint hardware sam ears intact. IMPRESSION: No acute intraabdominal abnormality. Mild colonic diverticulosis.
[2024-05-17 13:56] LABS: Urine Bacteria FEW /hpf (None Seen); Urine Blood TRACE /uL (Negative); Urine Clarity Clear (Clear); Urine Color Light-Yellow (Yellow); Urine Protein, UAD Negative (Negative); Urine Specific Gravity 1.042 (1.001-1.035); Urine Urobilinogen Normal (Negative); Urine WBC 2 /hpf (0 - 5)
[2024-05-17] MEDS: AZITHROMYCIN 250 MG TAB PO ONE (13:56)
[2024-05-17] MEDS: CEFEPIME 2GM/50ML NS 50 ML IV ONE (13:56)
[2024-05-17] MEDS: HALOPERIDOL LACTATE 5 MG/ML INJ VIAL IM ONE (15:43)
[2024-05-17 16:52] VITALS: BP 122/53; PULSE 116; RESP 18; TEMP 98.2; O2SAT 94
== END 2024-05-17 17:05 | disposition short-term general hospital (02) ==
LOC: ER 07:12 → EDBD 07:12 → EDUNIT# 07:12 → ER 17:05
DX: E87.5 Hyperkalemia (principal); R11.12 Projectile vomiting; F03.90 Unspecified dementia, unspecified severity, without behavioral disturbance, psychotic disturbance, mood disturbance, and anxiety; E78.5 Hyperlipidemia, unspecified; Z79.899 Other long term (current) drug therapy; Z88.0 Allergy status to penicillin; Z88.1 Allergy status to other antibiotic agents
CPT/HCPCS: 36415; 71045; 74177; 80053; 81001; 82962; 83605; 83690; 84484; 85007; 85027; 87040; 96361; 96365; 96367; 96372; 96375; 99285; J0613; J0692; J1630; J1815; J2405; J3490; J7030; J7042; Q9967

== ENCOUNTER 2024-05-25 18:51 | Emergency (ER) | payer OTHER ==
[~2024-05-25] VITALS: Ht 162.6 cm; Wt 54.5 kg
--- NOTE | 2024-05-25 19:24 | ECG ---
[facility] Test Date: 2024-05-25 Test Time: 19:22:04 Pat Name: JO RIVERA Department: ED Room: Gender: F Milling Supervisor: ALOK : 1945 Requested By: JOLLY LAW Order Number: [id number] Reading MD: Earnest Black Measurements Intervals [place] Rate: 101 P: 72 WA: 124 QRS: 40 QRSD: 88 T: -67 QT: 515 QTc: 668 Interpretive Statements Sinus tachycardia Probable left atrial enlargement Borderline repolarization abnormality Prolonged QT interval Electronically Signed On 05-29-2024 12:36:10 PST by Earnest Black Please click the below link to view image of tracing.
--- NOTE | 2024-05-25 19:50 | ED.PDOC ---
SOB-HPI HPI Comments 78 year old female IVETTE presents to the ED with chief complaint of SOB. EMS reports patient was at [employer] today when she begun to experience SOB and family called 911. EMS relays patient was recently treated for pneumonia last week and had been on O2 for it, however, her doctor had wanted her to ween off of the O2 use, so she did not bring it with her to [employer]. EMS states patient had an O2 saturation of 80%, so she was provided a nebulizer treatment of Albuterol and Atrovent, improving her O2 saturation to 100% with 4L of O2 as well. EMS denies any further history at this time. Chief Complaint: Shortness of Breath Time Seen by MD: 19:34 Primary Care Provider: unknown Reviewed notes: Nurses Notes, Technical Training Instructor Notes, Medications, Allergies Information Source: Patient, Emergency Med Personnel Mode of Arrival: EMS Severity: Moderate Timing: Hours Duration: Since onset Context: At Rest PE Risk Factors: None History of: COPD Prehospital treatment: Oxygen Modifying Factors: Exertion Past Medical History PAST MEDICAL HISTORY: COPD, Dementia, High Lipids Surgical History: Denies all surgeries CRUSHER History: No Pertinent CRUSHER History Family History Family History: Unknown Social History Smoker: Non-Smoker Alcohol: Denies ETOH Use Drugs: Denies Drug Use Lives In: Home Constitutional: denies: chills, diaphoresis, fatigue, fever, malaise, sweats, weakness, others EENTM: denies: blurred vision, double vision, ear bleeding, ear discharge, ear drainage, ear pain, ear ringing, eye pain, eye redness, hearing loss, mouth pain, mouth swelling, nasal discharge, nose bleeding, nose congestion, nose pain, photophobia, tearing, throat pain, throat swelling, voice changes, others Respiratory: reports: shortness of breath; denies: cough, hemoptysis, orthopnea, SOB at rest, SOB with excertion, stridor, wheezing, others Cardiovascular: denies: chest pain, dizzy spells, diaphoresis, Dyspnea on exertion, edema, irregular heart beat, left arm pain, lightheadedness, palpitations, PND, syncope, others Gastrointestinal: denies: abdomen distended, abdominal pain, blood streaked bowels, constipated, diarrhea, dysphagia, difficulty swallowing, hematemesis, melena, nausea, poor appetite, poor fluid intake, rectal bleeding, rectal pain, vomiting, others Genitourinary: denies: abnormal vagina bleeding, burning, dyspareunia, dysuria, flank pain, frequency, hematuria, incontinence, pain, , vagina discharge, urgency, others Neurological: denies: dizziness, fainting, headache, left sided numbness, left sided weakness, numbness, paresthesia, pre-existing deficit, right sided numbness, right sided weakness, seizure, speech problems, tingling, tremors, weakness, others Musculoskeletal: denies: back pain, gout, joint pain, joint swelling, muscle pain, muscle stiffness, neck pain, others Integumetry: denies: bruises, change in color, change in hair/nails, dryness, laceration, lesions, lumps, rash, wounds, others Allergic/Immunocompromised: denies: Difficulty Healing, Frequent Infections, Hives, Itching, others Hematologic/Lymphatic: denies: anemia, blood clots, easy bleeding, easy bruising, swollen glands, others Endocrine: denies: excessive hunger, excessive sweating, excessive thirst, excessive urination, flushing, intolerance to cold, intolerance to heat, unexplained weight gain, unexplained weight loss, others Psychiatric: denies: anxiety, bipolar disorder, depression, hopeless, panic disorder, schizophrenia, sleepless, suicidal, others All Other Systems: Reviewed and Negative Physical Exam General Appearance: Mild Distress HEENT: PERRL/EOMI Neck: Full Range of Motion, Normal Inspection Respiratory: Accessory Muscle Use, Crackles, Decreased Breath Sounds, Respiratory Distress, Wheezing Cardiovascular: No Edema, No JVD, Tachycardia Breast Exam: Deferred Gastrointestinal: Non Tender, Soft Genitalia: Deferred Pelvic: Deferred Rectal: Deferred Extremities: Normal inspection, Normal range of motion, Non-tender, No pedal edema Musculoskeletal : Apperance: Normal Neurologic: Alert (Oriented x4), Normal Affect, Normal Mood, Other (Moves all extremities. No gross focal deficit.) Cerebellar Function: NOT DONE Reflexes: NOT DONE Skin: Dry, Normal Color, Warm Lymphatic: NOT DONE EKG EKG : Comments Sinus tach, rate 101, normal AK and QRS intervals, QTC prolonged at 668, normal axis, nonspecific T changes. Was a procedure done? Was a procedure done?: No Differential Dx Differential Diagnosis: Asthma, Bronchitis, CHF, COPD, Hyperventilation, Panic Attack, Pneumonia, Respiratory Distress, URI X-Ray, Labs, Meds, VS Vital Signs Date Time Temp Pulse Resp B/P (MAP) Pulse Ox O2 Delivery O2 Flow Rate FiO2 05/26/24 00:50 18 95 Nasal Cannula* 2 28 05/25/24 22:00 99 15 152/74 (100) 94 05/25/24 19:22 101 05/25/24 19:22 97.1 82 22 132/86 (101) 99 Lab Test 05/26/24 00:06 05/25/24 22:30 05/25/24 22:18 05/25/24 20:03 Range/Units Troponin I High Sensitivity 31 26 16 </=34 ng/L Influenza Type A Antigen Negative Negative Influenza Type B Antigen Negative Negative SARS-CoV-2 Antigen (Rapid) Negative NEGATIVE Lactic Acid Level 2.3 *H 0.4-2.0 mmol/L White Blood Count 3.1 L 4.4-10.8 10^3/uL Red Blood Count 4.28 4.0-5.20 10^6/uL Hemoglobin 13.1 12.2-16.2 g/dL Hematocrit 38.3 36.0-46.0 % Mean Corpuscular Volume 89.7 80.0-100.0 fL Mean Corpuscular Hemoglobin 30.7 28.0-32.0 pg Mean Corpuscular Hemoglobin Concent 34.2 32.0-36.0 g/dL Red Cell Distribution Width 15.7 H 11.8-14.3 % Platelet Count 125 L 140-450 10^3/uL Mean Platelet Volume 7.4 6.9-10.8 fL Neutrophils (%) (Auto) 70.9 37.0-80.0 % Lymphocytes (%) (Auto) 17.8 10.0-50.0 % Monocytes (%) (Auto) 9.0 0.0-12.0 % Eosinophils (%) (Auto) 1.6 0.0-7.0 % Basophils (%) (Auto) 0.7 0.0-2.0 % Neutrophils # (Auto) 2.2 1.6-8.6 10 ^3/uL Lymphocytes # (Auto) 0.6 0.4-5.4 10 ^3/uL Monocytes # (Auto) 0.3 0-1.3 10 ^3/uL Eosinophils # (Auto) 0 0-0.8 10 ^3/uL Basophils # (Auto) 0 0-0.2 10 ^3/uL Nucleated Red Blood Cells 0.1 % Sodium Level 144 136-145 mmol/L Potassium Level 3.5 3.5-5.1 mmol/L Chloride Level 108 H 98-107 mmol/L Carbon Dioxide Level 28 20-31 mmol/L Anion Gap 8 5-15 Blood Urea Nitrogen 24 H 9-23 mg/dL Creatinine 1.00 0.550-1.02 mg/dL Glomerular Filtration Rate Calc 58 >90 mL/min BUN/Creatinine Ratio 24.0 H 10.0-20.0 Serum Glucose 154 H 74-106 mg/dL Calcium Level 9.6 8.7-10.4 mg/dL B-Type Natriuretic Peptide 265.50 0-100 pg/mL Current Medications Medications (Trade) Dose Ordered Sig/Inna Route Start Time Stop Time Status Last Admin Albuterol (Ventolin Medneb) 5 mg ONCE ONCE NEB 05/25/24 19:15 05/25/24 19:16 DC 05/25/24 23:33 Ipratropium [place] (Atrovent Medneb) 0.5 mg ONCE ONCE NEB 05/25/24 19:15 05/25/24 19:16 DC 05/25/24 23:33 Methylprednisolone Sodium Succinate (Solu Medrol) 125 mg ONCE ONCE IV 05/25/24 19:15 05/25/24 19:16 DC 05/26/24 00:25 Sodium Chloride 1,000 ml @ 1,000 mls/hr Q1H ONCE IV 05/25/24 23:45 05/26/24 00:44 DC 05/26/24 00:25 Levofloxacin/ Dextrose 150 ml @ 100 mls/hr ONCE ONCE IV 05/25/24 23:45 05/26/24 01:14 05/26/24 00:26 X-Ray, Labs, Meds, VS Comment 78-year-old female with a history of COPD, dementia, hyperlipidemia, recently diagnosed with pneumonia, presenting with shortness of breath. Vitals remarkable for temperature 97.1, respiratory rate 22, heart rate 101 Exam remarkable for tachypnea, mild respiratory distress, bilateral inspiratory/expiratory wheezes and bibasilar rales Rhythm strip independently interpreted by me: Sinus sinus tach, rate 101, no ectopy. Chest x-ray CBC remarkable for WBC 3.1, platelets 125, basic metabolic panel remarkable for chloride 108, BUN 24 BNP 265.5, troponin negative Lactate pending, COVID and influenza swabs pending Patient treated with the following in the ED: Albuterol 5 mg/Atrovent 0.5 mg nebulized x2, Solu-Medrol 125 mg IV, 1 L 0.9 normal saline IV bolus, Levaquin 750 mg IV On re-evaluation, patient is mildly tachypneic, states she feels better, has bilateral scattered expiratory wheezes. Saturating 91% on 4 L nasal cannula. Plan is to admit/transfer the patient for respiratory support as needed Case discussed with [facility], will arrange for transfer. Authorization [id number] Time of 1ST Reevaluation: 20:34 Reevaluation 1ST: Unchanged Patient Education/Counseling: Diagnosis, Treatment Family Education/Counseling: No Family Present Departure 1 Departure Time of Disposition: 23:53 Impression: Primary Impression: Acute exacerbation of chronic obstructive pulmonary disease (COPD) Additional Impressions: Pneumonia Qualified Codes: J18.9 - Pneumonia, unspecified organism Elevated lactic acid level Disposition: 02 SHORT TERM HOSPITAL Admit to: Tele Condition: Guarded Critical Care Note Critical Care Time?: Yes (35 min-critical care time only) Critical care comment: Critical care time including multiple bedside re-evaluations, review of lab and imaging studies, and discussion of the case with the accepting physician. Patient is high risk for respiratory decompensation. Stability Stability form required: No Heart Score Heart Score: Heart Score Response (Comments) Value History N/A 0 EKG N/A 0 Age N/A 0 Risk Factors N/A 0 Troponin N/A 0 Total 0 I personally scribed for JOLLY REES MD ([email or web address]) on 05/25/24 at 1 9:50. Electronically submitted by Michael Degroot ([email or web address]). JOLLY REES MD May 25, 2024 19:50
[2024-05-25 20:30] LABS: Basophils # (auto) 0 10 ^3/uL (0-0.2); Basophils % (auto) 0.7 % (0.0-2.0); Eosinophils # (auto) 0 10 ^3/uL (0-0.8); Eosinophils % (auto) 1.6 % (0.0-7.0); Hematocrit 38.3 % (36.0-46.0); Hemoglobin 13.1 g/dL (12.2-16.2); Lymphocytes # (auto) 0.6 10 ^3/uL (0.4-5.4); Lymphocytes % (auto) 17.8 % (10.0-50.0); Mean Corpuscular Hemoglobin 30.7 pg (28.0-32.0); Mean Corpuscular Hgb Conc. 34.2 g/dL (32.0-36.0); Mean Corpuscular Volume 89.7 fL (80.0-100.0); Monocytes # (auto) 0.3 10 ^3/uL (0-1.3); Neutrophils # (auto) 2.2 10 ^3/uL (1.6-8.6); Neutrophils % (auto) 70.9 % (37.0-80.0); Nucleated Red Blood Cells % 0.1 %; Platelet Count (auto) 125 10^3/uL (140-450); Red Blood Cells 4.28 10^6/uL (4.0-5.20); Red Cell Distribution Width 15.7 % (11.8-14.3); White Blood Cell 3.1 10^3/uL (4.4-10.8)
[2024-05-25 20:45] LABS: Potassium 3.5 mmol/L (3.5-5.1); Sodium 144 mmol/L (136-145)
[2024-05-25 20:46] LABS: Anion Gap 8 (5-15); Calcium 9.6 mg/dL (8.7-10.4); Carbon Dioxide 28 mmol/L (20-31); Chloride 108 mmol/L (98-107)
[2024-05-25 20:52] LABS: Blood Urea Nitrogen 24 mg/dL (9-23); Glucose 154 mg/dL (74-106)
--- NOTE | 2024-05-25 22:51 | DVH ---
CHEST RADIOGRAPH Indication: sob Technique: Single frontal view of the chest was obtained Comparison: XY CHEST PORTABLE on DOS: 05/17/24, CHEST PORTABLE on DOS: 06/15/22, CXRP on DOS: 06/15/22 Findings/ IMPRESSION: Coarse interstitial opacities in the bilateral mid to lower lung zones which may be due to pulmonary edema versus chronic interstitial lung disease versus interstitial pneumonia.
[2024-05-25 23:11] LABS: Lactic Acid w/Reflex 2.3 mmol/L (0.4-2.0)
[2024-05-25 23:21] LABS: COVID19 ANTIGEN SOFIA FIA NEGATIVE (NEGATIVE); Rapid Influenza A Negative (Negative); Rapid Influenza B Negative (Negative)
[2024-05-25] MEDS: IPRATROPIUM BROM 0.5 MG/2.5ML INH SOL NEB ONE (23:33)
[2024-05-25] MEDS: ALBUTEROL SULF 2.5 MG/0.5ML(0.5%) NEB SOLN NEB ONE (23:33)
[2024-05-25] MEDS ORDERED: ALBUTEROL SULF 2.5 MG/0.5ML(0.5%) NEB SOLN NEB ONE (23:45)
[2024-05-25] MEDS ORDERED: IPRATROPIUM BROM 0.5 MG/2.5ML INH SOL NEB ONE (23:45)
[2024-05-26] MEDS: SODIUM CHLORIDE 0.9% 1,000 ML IV ONE (00:25)
[2024-05-26] MEDS: methylPREDNISolone SOD SUCC 125 MG/2 ML VL IV ONE (00:25)
[2024-05-26] MEDS: levoFLOXacin 750MG 150 ML IV ONE (00:26)
[2024-05-26 01:11] LABS: Base Excess 0.8 mmol/L (-2.0-3.0)
[2024-05-26 08:36] VITALS: PULSE 85; RESP 20; O2SAT 97
[2024-05-26 12:08] VITALS: BP 125/73; PULSE 73; RESP 18; TEMP 97.3; O2SAT 93
== END 2024-05-26 12:17 | disposition short-term general hospital (02) ==
LOC: ER 18:51 → EDBD 18:51 → EDUNIT# 18:51 → ER 23:56
DX: J44.1 Chronic obstructive pulmonary disease with (acute) exacerbation (principal); J18.9 Pneumonia, unspecified organism; E87.20 Acidosis, unspecified; F03.90 Unspecified dementia, unspecified severity, without behavioral disturbance, psychotic disturbance, mood disturbance, and anxiety; E78.5 Hyperlipidemia, unspecified; R07.89 Other chest pain; Z20.822 Contact with and (suspected) exposure to COVID-19
CPT/HCPCS: 36415; 36600; 71045; 80048; 82805; 83605; 83880; 84484; 85025; 87040; 87426; 87804; 93005; 94640; 96365; 96375; 99291; J1956; J2919; J7030